=== PATIENT | female | born 1960 | race Caucasian/White ===

== ENCOUNTER → 2017-05-12 | Outpatient (CLI) | payer BC ==
--- NOTE | 2017-05-12 16:00 | Diagnostic Imaging Report ---
EXAMINATION: Left foot at 01:50 p.m. INDICATION: Foot pain. FINDINGS: Three views were obtained. There is no fracture, dislocation, or acute bony abnormality evident. There is mild degenerative disease of the DIP joints of the second, third, and fourth digits. There is also a prominent calcaneal spur. The soft tissues are unremarkable. IMPRESSION: There is no evidence for an acute bony abnormality. Dictated by: Dictated on workstation # [id number]
== END ==
LOC: RAD 13:14
PROVIDERS: ATTEND Family Medicine
DX: M79.672 Pain in left foot (principal)
CPT/HCPCS: 73630

== ENCOUNTER → 2017-05-27 | Outpatient (CLI) | payer BC ==
--- NOTE | 2017-05-27 12:41 | Diagnostic Imaging Report ---
INDICATION: Postmenopausal screening. FINDINGS: The total T score in the spine is 1.7. The T score in the right hip is 0.2. The T score in the left hip is 0.1. IMPRESSION: Normal bone mineralization for age. Dictated by: Dictated on workstation # [id number]
== END ==
LOC: RAD 10:31
PROVIDERS: ATTEND Family Medicine
DX: Z13.820 Encounter for screening for osteoporosis (principal)
CPT/HCPCS: 77080

== ENCOUNTER → 2017-08-06 | Outpatient (CLI) | payer BC ==
--- NOTE | 2017-08-06 08:52 | Diagnostic Imaging Report ---
EXAMINATION: Bilateral diagnostic mammogram with tomography evaluation. The current study was also evaluated with a Computer Aided Detection (CAD) system. INDICATION: Right breast asymmetry. COMPARISON: 08/07/2016. FINDINGS: The previously noted breast asymmetry on the 08/01/2015 exam is less prominent on the current study. There is heterogenous dense breast parenchyma seen bilaterally with benign-appearing calcifications. No mass, architectural distortion, or suspicious cluster of calcifications is identified. IMPRESSION: Dense breasts with no definite focal lesion or evidence of malignancy identified. ACR BI-RADS Category 2: Benign findings. Result letter will be mailed to the patient. Note: At least 10% of breast cancer is not imaged by mammography. Dictated by: Dictated on workstation # [id number]
== END ==
LOC: RAD 08:03
PROVIDERS: ATTEND Family Medicine
DX: R92.8 Other abnormal and inconclusive findings on diagnostic imaging of breast (principal)
CPT/HCPCS: 77066

== ENCOUNTER → 2018-03-26 | Outpatient (CLI) | payer BC ==
--- NOTE | 2018-03-26 09:16 | Diagnostic Imaging Report ---
PROCEDURE: MR imaging cervical spine without contrast 03/26/2018 TECHNIQUE: Multiplanar, multisequence MR imaging of the cervical spine was performed without contrast. INDICATION: Pain in the left arm And cervical region. No known injuries. FINDINGS: There is grade 1 anterolisthesis of C4 on C5. The remaining alignment is maintained. The cervical medullary junction is unremarkable in appearance. The visualized cord demonstrates normal signal intensity. The visualized sinuses demonstrate mucosal thickening in the maxillary sinuses. C2-C3: Bilateral facet hypertrophy is seen. Central canal patent. Left neural foraminal narrowing is mild. Right neural foramen is unremarkable. C3-C4: There is disc desiccation. There is minimal central disc protrusion with no central stenosis appreciated. Bilateral facet hypertrophy is seen and there is secondary neural foraminal narrowing, left greater than right. C4-C5: There is intervertebral disc space narrowing. Mild broad-based bulging disc material is seen. Bilateral facet hypertrophy is also seen. No significant central narrowing is seen. There is bilateral neural foraminal narrowing, left greater than right. C5-C6: There is intervertebral disc space narrowing, disc desiccation with anterior and posterior spurring. A left paracentral spur disc complex noted. This appears to abut the transiting left nerve root. There is also severe central stenosis but no signal change or cord compression noted along the cord. However, surgical consultation may be warranted given the degree of central stenosis at this level. Bilateral neural foraminal stenosis is also seen, left greater than right. C6-C7: There is intervertebral disc space narrowing and disc desiccation and a broad-based bulging disc. Anterior and posterior spurring noted. Bilateral facet hypertrophy also seen. Overall, moderate to near severe central narrowing is seen. The neural foramina are narrowed bilaterally, left greater than right. C7-T1: Intervertebral disc space narrowing and disc desiccation is noted. There is left-sided fairly marked facet hypertrophy with adjacent T2 hyperintensities which extend into the canal medial and anterior to the left facet joint. These findings are likely due to synovial or perineural cysts. Moderate narrowing of the left neural foramen and possibly the left lateral recess also noted. There could be encroachment upon the left-sided nerve roots at this level, correlate with symptoms. Given the heterogeneity in the cystic change described, post contrast imaging may be useful to exclude a partially cystic lesion which is felt to be unlikely. Remaining visualized upper thoracic region, unremarkable. The visualized prevertebral soft tissues are within normal limits. IMPRESSION: 1. 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 Although no cord compression or edema is seen in the cord at this time, surgical consultation may be warranted. Moderate to near severe central narrowing at C6-C7 also noted. 2. Heterogeneous cystic changes, left paracentral at C7-T1. See above discussion and recommendations. Dictated by: Dictated on workstation # [id number]
== END ==
LOC: RAD 07:53
PROVIDERS: ATTEND Nurse Practitioner
DX: M99.71 Connective tissue and disc stenosis of intervertebral foramina of cervical region (principal); M50.13 Cervical disc disorder with radiculopathy, cervicothoracic region; M43.12 Spondylolisthesis, cervical region
CPT/HCPCS: 72141

== ENCOUNTER → 2018-08-01 | Outpatient (CLI) | payer BC ==
--- NOTE | 2018-08-01 09:28 | Diagnostic Imaging Report ---
Indication: Routine screening. Comparison is made with prior mammogram 08/06/2017 and 08/04/2016. 2-D and 3-D bilateral screening mammography was performed with CAD. Both breasts remain heterogeneously dense, limiting the sensitivity of mammography. Scattered benign-appearing calcifications are again noted bilaterally. There is a biopsy clip again noted in the left breast. No mass or malignant-appearing microcalcifications are seen. The axillae are unremarkable. Impression: BI-RADS category 2 No mammographic features suspicious for malignancy are identified. ACR BI-RADS Category 2: Benign findings. Result letter will be mailed to the patient. Note: At least 10% of breast cancer is not imaged by mammography. Dictated by: Dictated on workstation # [id number]
== END ==
LOC: RAD 08:27
PROVIDERS: ATTEND Family Medicine
DX: Z12.31 Encounter for screening mammogram for malignant neoplasm of breast (principal)
CPT/HCPCS: 77067

== ENCOUNTER → 2019-08-11 | Outpatient (CLI) | payer BC ==
--- NOTE | 2019-08-11 08:53 | Diagnostic Imaging Report ---
INDICATION: Routine screening. Comparison is made with prior mammogram 08/01/2018 and 08/06/2017. 2-D and 3-D bilateral screening mammography was performed with a Computer Aided Detection (CAD) system. 3-D tomosynthesis was also performed and reviewed. FINDINGS: Both breasts are heterogeneously dense, limiting the sensitivity of mammography. Benign calcifications are scattered throughout both breasts. No mass or malignant appearing microcalcifications are seen. Axillae are unremarkable. IMPRESSION: No mammographic features suspicious for malignancy are identified. ACR BI-RADS Category 2: Benign findings. Result letter will be mailed to the patient. Note: At least 10% of breast cancer is not imaged by mammography. Dictated by: Dictated on workstation # [id number]
== END ==
LOC: RAD 07:41
PROVIDERS: ATTEND Family Medicine
DX: Z12.31 Encounter for screening mammogram for malignant neoplasm of breast (principal)
CPT/HCPCS: 77067

== ENCOUNTER → 2020-06-17 | Outpatient (CLI) | payer BC ==
[~2020-06-17] MED LIST: BARIUM for suspension 96% w/w (Vanilla Silq Medium Density) PO ONE; BARIUM for suspension 98% w/w (Vanilla Silq High Density) PO ONE; BISO-3 PO; BRIM5DRO OU; CALC1TAB75 PO; HYDR25TA4 PO; LATA7.5D OU; LEVO88TA54 PO; LORA-405 PO; LORA10TA7 PO; POTA10CA43 PO; RAMI10CA69 PO; SIMV20TA26 PO
--- NOTE | 2020-06-17 11:00 | Diagnostic Imaging Report ---
Barium swallow esophagram. Indication: Dysphagia. There are no prior studies available for comparison. The preliminary film was unremarkable. A double contrast study was performed. The patient swallowed the contrast material without difficulty. There was no delay or obstruction of passage of contrast through the esophagus. There is no mass or stricture identified. There was a small sliding hiatal hernia but there is no evidence for gastroesophageal reflux. A cursory examination of the stomach shows that the stomach has good distensibility and motility. There is no mass or ulceration. The duodenal bulb and proximal small bowel are unremarkable. Impression: 1. There is a small sliding hiatal hernia but there is no evidence for gastroesophageal reflux. There is no mass or stricture involving the esophagus. 2. The stomach, duodenal bulb and proximal small bowel are generally unremarkable. Dictated by: Dictated on workstation # [id number]
== END ==
LOC: RAD 09:45
PROVIDERS: ATTEND Surgery
DX: K44.9 Diaphragmatic hernia without obstruction or gangrene (principal)
CPT/HCPCS: 74220

== ENCOUNTER 2020-06-21 05:35 | Outpatient (RCR) | payer BC ==
[~2020-06-21] VITALS: Ht 167.7 cm; Wt 85.5 kg
[~2020-06-21 05:35] MED LIST changes: -BARIUM for suspension 96% w/w (Vanilla Silq Medium Density) PO ONE; -BARIUM for suspension 98% w/w (Vanilla Silq High Density) PO ONE
[2020-06-25] MEDS ORDERED: PANT40TA2 PO (13:15)
== END 2020-06-21 08:55 | disposition home or self-care (01) ==
LOC: PREOP 05:35
PROVIDERS: ATTEND Surgery
DX: Z01.818 Encounter for other preprocedural examination (principal); Z01.812 Encounter for preprocedural laboratory examination; Z12.11 Encounter for screening for malignant neoplasm of colon; R13.10 Dysphagia, unspecified; Z20.828 Contact with and (suspected) exposure to other viral communicable diseases; Z80.0 Family history of malignant neoplasm of digestive organs
CPT/HCPCS: 87635

== ENCOUNTER 2020-06-25 11:26 | Day surgery (SDC) | payer BC ==
[~2020-06-25] VITALS: Ht 167.7 cm; Wt 85.5 kg
[2020-06-25] MEDS ORDERED: LACTATED RINGERS 1,000 ML IV ONE (11:28)
[2020-06-25 11:30] VITALS: BP 165/83
[2020-06-25] MEDS ORDERED: LACTATED RINGERS 1,000 ML IV STA (11:31)
[2020-06-25] MEDS ORDERED: HURRICAINE EXT TUBE (BENZOCAINE) XX PRN (11:45)
[2020-06-25] MEDS ORDERED: PROPOFOL INJECTION 50 ML IV ONE ×2 (12:00→12:57)
[2020-06-25] MEDS ORDERED: MIDAZOLAM 2 MG/2 ML (VERSED) VIAL ONE (12:00)
--- NOTE | 2020-06-25 12:37 | Progress Note-Pre Operative ---
Pre-Operative Progress Note H&P Reviewed The H&P was reviewed, patient examined and no changes noted. Date Seen by Provider: Jun 25, 2020 Time Seen by Provider: 12:36 Date H&P Reviewed: Jun 25, 2020 Time H&P Reviewed: 12:36 Pre-Operative Diagnosis: dysphagia, family hx colon cancer MELISSA MORALES DO Jun 25, 2020 12:37
[2020-06-25 13:10] VITALS: BP 108/58
--- NOTE | 2020-06-25 13:12 | Progress Note-Post Operative ---
Post-Operative Progess Note Surgeon (s)/Soft Sugar Cutter (s) Surgeon MELISSA MORALES DO Soft Sugar Cutter: na Pre-Operative Diagnosis dysphagia, family hx colon cancer Post-Operative Diagnosis hiatal hernia, reflux esophagitis Procedure & Operative Findings Date of Procedure 06/25/20 Procedure Performed/Findings egd c biopsies, colonoscopy Anesthesia Type per human relations teacher Estimated Blood Loss Estimated blood loss (mL): na Specimens/Packing Specimens Removed antrum, ge MELISSA MORALES DO Jun 25, 2020 13:12
[2020-06-25 13:15] VITALS: BP 120/66
[2020-06-25] MEDS ORDERED: PANT40TA2 PO (13:15)
--- NOTE | 2020-06-25 13:15 | Discharge Inst-Simple/Standard ---
Discharge Inst-Standard Discharge Medications New, Converted or Re-Newed RX: Transmitted to Pharmacy Patient Instructions/Follow Up Plan of Care/Instructions/FU: 2-3 weeks Ximena Activity as Tolerated: Yes Discharge Diet: Regular Diet MELISSA MORALES DO Jun 25, 2020 13:15
[2020-06-25 13:20] VITALS: BP 120/66
--- NOTE | 2020-06-25 13:21 | Anesthesia-General Post-Op ---
MAC Patient Condition Mental Status/LOC: Same as Preop Cardiovascular: Satisfactory Nausea/Vomiting: Absent Respiratory: Satisfactory Pain: Controlled Complications: Absent Post Op Complications Complications None Follow Up Care/Instructions Patient Instructions None needed. Anesthesiology Discharge Order Discharge Order Patient is doing well, no complaints, stable vital signs, no apparent adverse anesthesia problems. No complications reported per nursing. THAI CORDOVA CRNA Jun 25, 2020 13:21
[2020-06-25 13:58] VITALS: BP 115/62
--- NOTE | 2020-06-25 20:38 | OPERATIVE REPORT ---
DATE OF SERVICE: 06/25/2020 PREOPERATIVE DIAGNOSES: Dysphagia and family history of colon cancer. POSTOPERATIVE DIAGNOSES: Hiatal hernia, reflux esophagitis and normal colon. PROCEDURES PERFORMED: EGD with biopsies and colonoscopy. SURGEON: Melissa Bueno DO ANESTHESIA: Per SPECIAL EFFECTS PERSON. ESTIMATED BLOOD LOSS: None. COMPLICATIONS: None. INDICATIONS FOR PROCEDURE: The patient is a 59-year-old female with some dysphagia and family history of colon cancer. She understands the risks and benefits of procedure and wished to proceed with procedure. Consent was signed in the chart. DESCRIPTION OF PROCEDURE: The patient was taken to the endoscopy suite and placed in a left lateral recumbent position. Timeout was performed. Scope was inserted in the mouth, down the esophagus, stomach and into the duodenum without difficulty. There were no polyps, masses or ulcerations. Scope was slowly retracted back into the stomach, where it was further insufflated. There were no polyps, masses or ulcerations. Scope was retroflexed noting hiatal hernia and no other pathology. Scope was returned to its normal position. Biopsy of the antrum was obtained. Scope was then slowly retracted back into the distal esophagus. Some slight evidence of reflux esophagitis. Biopsy of the GE junction was obtained. Scope was then slowly retracted back until completely removed noting no other pathology. Digital rectal exam was performed noting a small anal tag and some internal hemorrhoids. Scope was inserted in the rectum, advanced all the way to cecum with minimal difficulty. Prep was adequate. Scope was then slowly retracted back. There were no polyps, masses or ulcerations within the cecum, ascending, transverse, descending and sigmoid colon. Once in the rectum, scope was retroflexed noting no other pathology. Scope was returned to its normal position, slowly withdrawn until completely removed. The patient tolerated the procedure well without any complications. She was taken to the recovery room in a stable condition. RECOMMENDATIONS: The patient will be started on Protonix 40 mg daily. The patient will need repeat colonoscopy in 5 years due to family history, any issues before that be seen at that time. Job ID: [id number] DocumentID: [id number] Dictated Date: 06/25/2020 13:24:53 Ironworker Date: 06/25/2020 20:38:16 Dictated By: MELISSA BUENO DO
== END 2020-06-25 14:10 | disposition home or self-care (01) ==
LOC: ENDO 11:26
PROVIDERS: ATTEND Surgery
DX: K29.50 Unspecified chronic gastritis without bleeding (principal); K21.00 Gastro-esophageal reflux disease with esophagitis, without bleeding; K44.9 Diaphragmatic hernia without obstruction or gangrene; K64.8 Other hemorrhoids; K64.4 Residual hemorrhoidal skin tags; I10 Essential (primary) hypertension; K21.9 Gastro-esophageal reflux disease without esophagitis; E03.9 Hypothyroidism, unspecified; B96.81 Helicobacter pylori [H. pylori] as the cause of diseases classified elsewhere; E66.9 Obesity, unspecified; Z68.30 Body mass index [BMI] 30.0-30.9, adult; Z91.048 Other nonmedicinal substance allergy status; Z88.8 Allergy status to other drugs, medicaments and biological substances; Z80.0 Family history of malignant neoplasm of digestive organs; Z80.3 Family history of malignant neoplasm of breast; Z80.1 Family history of malignant neoplasm of trachea, bronchus and lung
CPT/HCPCS: 88305

== ENCOUNTER 2020-08-12 08:00 | Outpatient (RCR) | payer BC | END 2020-11-10 | disposition home or self-care (01) | LOC: LAB 08:00 | PROVIDERS: ATTEND Surgery | DX: Z01.89 Encounter for other specified special examinations (principal) | CPT/HCPCS: 36415; 87338 ==

== ENCOUNTER → 2020-08-12 | Outpatient (CLI) | payer BC ==
[~2020-08-12] MED LIST changes: +CALC-1037 PO; -CALC1TAB75 PO; +PANT40TA2 PO
--- NOTE | 2020-08-12 10:56 | Diagnostic Imaging Report ---
INDICATION: Screening. TECHNIQUE: The current study was also evaluated with a Computer Aided Detection (CAD) system. 3-D Tomographic imaging was also performed. COMPARISON: 08/11/2019, 08/01/2018, and 08/06/2017. FINDINGS: There are scattered fibrotic densities bilaterally. There are benign type calcifications. There is no dominant mass, spiculated lesion, or suspicious calcification identified. The skin, nipples, and axillae are unremarkable. IMPRESSION: Benign findings. ACR BI-RADS Category 2: Benign findings. Result letter will be mailed to the patient. Note: At least 10% of breast cancer is not imaged by mammography. Dictated by: Dictated on workstation # [id number]
== END ==
LOC: RAD 08:00
PROVIDERS: ATTEND Family Medicine
DX: Z12.31 Encounter for screening mammogram for malignant neoplasm of breast (principal)
CPT/HCPCS: 77063; 77067

== ENCOUNTER → 2021-08-15 | Outpatient (CLI) | payer BC ==
--- NOTE | 2021-08-18 14:06 | Diagnostic Imaging Report ---
EXAMINATION: Digital mammogram bilateral screening with CAD. INDICATION: Screening. COMPARISON: This study was compared to the prior exams of 08/12/2020, 08/11/2019, and 08/01/2018. PERSONAL HISTORY: At this time, there are no current complaints. FINDINGS: The fibroglandular tissue in both breasts is heterogeneously dense. This does limit the sensitivity of this exam. Overall, there does not appear to have been any significant change when compared to the prior study. No primary or secondary sign of malignancy is noted. The stereotactic clip in the left breast seen previously is again evident and no different. IMPRESSION: There is no radiographic evidence for malignancy. ACR BI-RADS Category 1: Negative. Result letter will be mailed to the patient. Note: At least 10% of breast cancer is not imaged by mammography. Dictated by: Dictated on workstation # [id number]
== END ==
LOC: RAD 09:15
PROVIDERS: ATTEND Family Medicine
DX: Z12.31 Encounter for screening mammogram for malignant neoplasm of breast (principal)
CPT/HCPCS: 77063; 77067

== ENCOUNTER → 2022-08-17 | Outpatient (CLI) | payer BC ==
--- NOTE | 2022-08-17 13:13 | Diagnostic Imaging Report ---
INDICATION: Routine screening. COMPARISON: 08/15/2021 and 08/12/2020. TECHNIQUE: 2D and 3D bilateral screening mammography was performed with CAD. FINDINGS: Both breasts are heterogeneously dense, limiting the sensitivity of mammography. There are benign calcifications scattered throughout both breasts. A biopsy marker clip in the left breast is again noted. No mass or malignant-appearing microcalcifications are seen. The axillae are unremarkable. IMPRESSION: No mammographic features suspicious for malignancy are identified. ACR BI-RADS Category 2: Benign findings. Result letter will be mailed to the patient. Note: At least 10% of breast cancer is not imaged by mammography. Dictated by: Dictated on workstation # [id number]
== END ==
LOC: RAD 07:45
PROVIDERS: ATTEND Family Medicine
DX: Z12.31 Encounter for screening mammogram for malignant neoplasm of breast (principal)
CPT/HCPCS: 77063; 77067

== ENCOUNTER → 2023-08-19 | Outpatient (CLI) | payer BC ==
[~2023-08-19] MED LIST changes: -POTA10CA43 PO; +POTA10CA84 PO
--- NOTE | 2023-08-19 09:53 | Diagnostic Imaging Report ---
INDICATION: Routine screening. COMPARISON: 08/17/2022 and 08/15/2021. TECHNIQUE: 2D and 3D bilateral screening mammography was performed with CAD. FINDINGS: Both breasts are heterogeneously dense, limiting the sensitivity of mammography. There are scattered benign calcifications. A biopsy marker clip in the left breast is again noted. No mass or malignant-appearing microcalcifications are identified. The axillae are unremarkable. IMPRESSION: No mammographic features suspicious for malignancy are identified. ACR BI-RADS Category 2: Benign findings. Result letter will be mailed to the patient. Note: At least 10% of breast cancer is not imaged by mammography. Dictated by: Dictated on workstation # [id number]
== END ==
LOC: RAD 07:30
PROVIDERS: ATTEND Family Medicine
DX: Z12.31 Encounter for screening mammogram for malignant neoplasm of breast (principal)
CPT/HCPCS: 77063; 77067